=== PATIENT | male | born 1945 | race Caucasian/White ===

== ENCOUNTER 2017-10-25 01:16 | Inpatient (IN) | payer MEDICARE ==
[~2017-10-25] VITALS: Ht 175.3 cm; Wt 64.4 kg
[2017-10-25 01:45] VITALS: BP 141/92
--- NOTE | 2017-10-25 01:45 | NUR ---
GPS ADMISSION NOTE, RECEIVED PATIENT FROM [facility] DEPARTMENT OF ALCOHOL, DRUG, AND MENTAL HEALTH SERVICES / HOME. PATIENT ARRIVED ON THIS UNIT AT 0145 VIA STRETCHER WITH 2 EMT ESCORTS. PATIENT ADMITTED ON A 5150 HOLD FOR DTO AND DTS. PER HOLD [facility] CALLED TO PATIENT HOUSE BECAUSE HE WAS HAVING OUTBURSTS OF ANGER WHILE THREATENING TO KILL HIS AND HIMSELF. PATIENT THREATENED TO KILL HIMSELF BY OVERDOSING ON MEDICATION. PATIENT IS UNABLE TO CONTRACT FOR SAFETY AT THIS TIME. THE 5150 WAS REVIEWED AND THE DOCUMENTATION IN THE 5150 HOLD APPEARS TO REFLECT THE PRESENTATION OF THE PATIENT. UPON FACE TO FACE ASSESSMENT PATIENT IS CURRENTLY LYING IN BED AWAKE, HAS NO S/S OR COMPLAINTS OF PAIN. PATIENT IS DISPLAYING NO S/S OF APPARENT DISTRESS. PATIENT BREATHING IS UNLABORED WITH EQUAL RISE AND FALL OF THE CHEST. PATIENT IS ALERT AND ORIENTATED X 3 ON ROOM AIR. PATIENT ASSISTED WITH TURING AND REPOSITIONING Q2HR AND PRN FOR COMFORT AND CIRCULATION. PATIENT HAS NO NEEDS AT THIS TIME. PATIENT IS NOTED TO BEING WITHDRAWN, DEPRESSED, DISHEVELED, DISORGANIZED, COOPERATIVE, AND NEEDS REDIRECTION. PATIENT DENIES SUICIDE IDEATIONS AND HOMICIDAL IDEATIONS AT THIS TIME. PATIENT IS UNDER THE PSYCHIATRIC CARE OF DR. JOHNSON AND THE MEDICAL CARE OF DR SANTOS. PATIENT BELONGINGS WERE INVENTORIED AND CHECKED FOR CONTRABAND. ALL CONTRABAND REMOVED AND STORED IN PATIENT HALLWAY LOCKER. PATIENT ADVANCED DIRECTIVES PREFERENCE, IMMUNIZATIONS QUESTIONER, NECESSARY PAPERWORK, AND SKIN ASSESSMENT COMPLETED. PATIENT ORIENTATED TO ROOM, FLOOR, AND STAFF WITH ALL QUESTIONS ANSWERED. PATIENT EDUCATED ON THE USE OF THE CALL ROBERTS. PATIENT BED SIDE RAILS ARE UP X 2 FOR SAFETY. PATIENT BED IS LOCKED, LOW AND I WILL CONTINUE TO MONITOR THIS PATIENT Q 15 MIN WITH THE HELP OF STAFF TO MAINTAIN SAFETY.
[2017-10-25] MEDS ORDERED: MAGNESIUM HYDROXIDE 30 ML UDC PO PRN (02:00)
[2017-10-25] MEDS ORDERED: MAG HYDROX/AL HYDROX/SIMETH 30 ML UDC PO PRN (02:00)
[2017-10-25] MEDS ORDERED: PRAZ2CAP2 PO ×2 (02:58)
[2017-10-25] MEDS ORDERED: PRAZ5CAP2 PO (02:58)
[2017-10-25] MEDS ORDERED: THIA100T13 PO (02:58)
[2017-10-25] MEDS ORDERED: IPRA12.9 PO (02:58)
[2017-10-25] MEDS ORDERED: DOCU-141 PO (02:58)
[2017-10-25] MEDS ORDERED: PRAV40TA3 PO (02:58)
[2017-10-25] MEDS ORDERED: IBUP-1955 PO (02:58)
[2017-10-25] MEDS ORDERED: VENL75CA62 PO (02:58)
[2017-10-25] MEDS ORDERED: PREG25CA PO (02:58)
[2017-10-25] MEDS ORDERED: FOLI1TAB16 PO (02:58)
[2017-10-25] MEDS ORDERED: CYCL5TAB PO (02:58)
[2017-10-25] MEDS ORDERED: TAMS-12 PO (02:58)
[2017-10-25] MEDS ORDERED: VENL75TA4 PO (02:58)
[2017-10-25] MEDS ORDERED: TRAZ-214 PO (02:58)
[2017-10-25] MEDS ORDERED: QUET25TA PO (02:58)
[2017-10-25] MEDS ORDERED: OXYB5TAB11 PO (02:58)
[2017-10-25] MEDS ORDERED: FAMO20TA8 PO (02:58)
[2017-10-25] MEDS: ACETAMINOPHEN 325 MG TABLET PO PRN (03:00)
--- NOTE | 2017-10-25 03:00 | NUR ---
GPS RN NOTE, PATIENT HAS A COMPLAINT OF A HEADACHE AND IS REQUESTING TYLENOL AT THIS TIME. PATIENT VITAL SIGNS ARE STABLE. GAVE TYLENOL 650MG PO Q6HR PRN ORDERED. WILL REASSESS FOR PAIN AND I WILL CONTINUE TO MONITOR THIS PATIENT.
[2017-10-25] MEDS ORDERED: FLUT16SP16 NS (03:06)
[2017-10-25 07:58] LABS: ALBUMIN 3.5 g/dL (3.4-5.0); BILIRUBIN,TOTAL 0.3 mg/dL (0.2-1.0); CALCIUM, SERUM 8.7 mg/dL (8.5-10.1); POTASSIUM 3.8 mmol/L (3.5-5.1); TOTAL PROTEIN, SERUM 7.8 g/dL (6.4-8.2)
[2017-10-25 09:03] VITALS: BP 123/77
[2017-10-25] MEDS: NICOTINE PATCH (21MG) 21 MG PATCH.TD24 TD SCH (09:21)
--- NOTE | 2017-10-25 11:39 | NUR ---
Initial Discharge Plan: Pt currently resides at [address] [place] [id number]; ([phone]) with his . Per pt, he would like to return home and does not want to be sent to a facility no matter what his wants. SW will work with the pt and the MD regarding appropriate discharge planning. SW will form a safe and proper discharge.
--- NOTE | 2017-10-25 11:51 | NUR ---
SW called the pt's previous health and social care teacher from the [facility], Zohaib Hines ([phone] ext [phone]). TROY had to leave a message regarding the pt and asked the health and social care teacher to call back so that they can discuss his behaviors and a plan.
--- NOTE | 2017-10-25 11:51 | NUR ---
TROY called the pt's , Charlie Blackwell ([phone]), and discussed the pt and how she does not feel safe if the pt were to return home.
--- NOTE | 2017-10-25 12:03 | NUR ---
SW spoke to the pt's social worker clinical from [facility], Rosario Sanon ([phone] ext [phone]) and discussed potential options for discharge and she also stated that a neurological consult may be necessary because the pt has a traumatic brain injury.
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
[2017-10-25 16:00] VITALS: BP 163/93
[2017-10-25] MEDS: DOCUSATE SODIUM 250 MG CAPSULE PO SCH (18:18)
[2017-10-25] MEDS: IPRATROPIUM NEB FS 0.5 MG/2.5 ML AMPUL.NEB NEB SCH (19:30)
[2017-10-25] MEDS: TEMAZEPAM 7.5 MG CAPSULE PO PRN (21:23)
[2017-10-25] MEDS: OXYBUTYNIN CHLORIDE 5 MG TABLET PO SCH (21:24)
[2017-10-25] MEDS: TRAZODONE 50 MG TABLET PO SCH (21:24)
[2017-10-25] MEDS: LORAZEPAM 0.5 MG TABLET PO PRN (21:24)
[2017-10-25] MEDS ORDERED: PRAZOSIN HCL 5 MG PO SCH (22:00)
[2017-10-26] MEDS: IPRATROPIUM NEB FS 0.5 MG/2.5 ML AMPUL.NEB NEB SCH ×4 (01:13→19:30)
[2017-10-26 02:28] VITALS: BP 148/89
[2017-10-26 08:00] VITALS: BP 125/77
[2017-10-26 08:14] LABS: BASOPHILS % (AUTO) 0.2 % (0.0-2.0); EOSINOPHILS % (AUTO) 1.5 % (0.0-6.0); HEMATOCRIT 41 % (39-51); HEMOGLOBIN 13.9 g/dL (13.5-17.5); LYMPHOCYTES # (AUTO) 1.1 /CMM (0.8-4.8); MEAN CORPUSCULAR HEMOGLOBIN 34 PG (26.0-33.0); MEAN CORPUSCULAR HGB CONC 34 g/dl (31.0-36.0); MEAN CORPUSCULAR VOLUME 101 fL (80-96); MONOCYTES % (AUTO) 10.4 % (2.0-12.0); NEUTROPHILS # (AUTO) 7.1 /CMM (1.8-8.9); NEUTROPHILS % (AUTO) 75.9 % (43.0-81.0); PLATELET COUNT (AUTO) 410 /CMM (150-450); RDW COEFFICIENT OF VARIATION 13.9 (11.5-15.0); WHITE BLOOD COUNT (AUTO) 9.3 K/uL (4.3-11.0)
[2017-10-26] MEDS: CYCLOBENZAPRINE 10 MG TABLET PO SCH ×3 (08:28→17:11)
[2017-10-26] MEDS: DOCUSATE SODIUM 250 MG CAPSULE PO SCH (08:28)
[2017-10-26] MEDS: PREGABALIN 25 MG CAPSULE PO SCH ×2 (08:28→17:10)
[2017-10-26] MEDS: FOLIC ACID 1 MG TABLET PO SCH (08:28)
[2017-10-26] MEDS: THIAMINE HCL 100 MG TABLET PO SCH (08:28)
[2017-10-26] MEDS: TAMSULOSIN 0.4 MG CAP.SR.24H PO SCH (08:28)
[2017-10-26] MEDS: FAMOTIDINE (20 MG) 20 MG TABLET PO SCH ×2 (08:28→17:10)
[2017-10-26] MEDS: ATORVASTATIN 10 MG TABLET PO SCH (08:29)
[2017-10-26] MEDS: NICOTINE PATCH (21MG) 21 MG PATCH.TD24 TD SCH ×2 (08:29→08:43)
[2017-10-26] MEDS: FLUTICASONE PROPIONATE 16 GM BOTTLE NS SCH (08:29)
[2017-10-26 08:42] LABS: CALCIUM, SERUM 8.9 mg/dL (8.5-10.1); POTASSIUM 3.8 mmol/L (3.5-5.1)
[2017-10-26] MEDS: DIVALPROEX SODIUM 250 MG TABLET.DR PO SCH ×3 (08:42→17:10)
[2017-10-26] MEDS: VENLAFAXINE XR 75 MG CAP.SR.24H PO SCH ×2 (08:42→17:10)
[2017-10-26] MEDS ORDERED: PRAZOSIN HCL 1 MG CAPSULE PO SCH ×2 (09:00→12:40)
[2017-10-26] MEDS: IBUPROFEN 600 MG TABLET PO PRN (12:06)
--- NOTE | 2017-10-26 14:23 | NUR ---
ILEANA TERRELL ORDERED PODIATRY CONSULT AND CALLED THE OFFICE AND GENERAL TECHNICIAN WILL NOTIFY DR. TURNER THE SCHOOL VOCATIONAL EDUCATOR.
[2017-10-26 16:00] VITALS: BP 143/86
--- NOTE | 2017-10-26 19:50 | NUR ---
RN INITIAL NOTES: PT IN BED, AWAKE, A/O X3 ON RA DENIES ANY PAIN OR DISCOMFORT AT THIS TIME, PT AMBULATORY, WITHDRAWN, DEPRESSED, HOWEVER COOPERATIVE, PT HAS EPISODE OF BEING EASILY AGITATED AND CHANGES MOOD FREQUENTLY, MEDICATION COMPLIANT, HAS A NOTE FROM PT'S THAT WHEN DR JOHNSON CAME, NEEDS TO CALL PT'S , MD CURRENTLY IN THE UNIT AND MADE AWARE OF FAMILY REQUEST. ALSO MD WENT TO SEE THE PT. SAFETY PRECAUTIONS FOR FALL INITIATED, WILL MONITOR PT [id number] FOR SAFETY AND ANY CHANGES IN BEHAVIOR.
[2017-10-26 20:00] VITALS: BP 159/96
[2017-10-26 20:16] VITALS: BP 159/96
--- NOTE | 2017-10-26 20:30 | NUR ---
RN NOTES: RT APPROACHED ASSIGNED RN, STATED PT REFUSED BREATHING TX,STATED HIS LUNGS WERE CLEAR, EDUCATION PROVIDED TO THE PT,
[2017-10-26] MEDS ORDERED: PRAZOSIN HCL 1 MG CAPSULE PO ONE (21:56)
[2017-10-26] MEDS: OXYBUTYNIN CHLORIDE 5 MG TABLET PO SCH (22:14)
[2017-10-26] MEDS: TRAZODONE 50 MG TABLET PO SCH (22:16)
[2017-10-26] MEDS: PRAZOSIN HCL 1 MG CAPSULE PO SCH (22:16)
[2017-10-26 22:17] VITALS: BP 149/73
[2017-10-27] MEDS: IPRATROPIUM NEB FS 0.5 MG/2.5 ML AMPUL.NEB NEB SCH ×4 (01:30→19:26)
[2017-10-27 08:00] VITALS: BP 114/66
[2017-10-27] MEDS: THIAMINE HCL 100 MG TABLET PO SCH (08:38)
[2017-10-27] MEDS: TAMSULOSIN 0.4 MG CAP.SR.24H PO SCH (08:38)
[2017-10-27] MEDS: ATORVASTATIN 10 MG TABLET PO SCH (08:38)
[2017-10-27] MEDS: DOCUSATE SODIUM 250 MG CAPSULE PO SCH (08:38)
[2017-10-27] MEDS: FAMOTIDINE (20 MG) 20 MG TABLET PO SCH ×2 (08:38→16:59)
[2017-10-27] MEDS: FOLIC ACID 1 MG TABLET PO SCH (08:39)
[2017-10-27] MEDS: DIVALPROEX SODIUM 250 MG TABLET.DR PO SCH ×3 (08:39→16:59)
[2017-10-27] MEDS: CYCLOBENZAPRINE 10 MG TABLET PO SCH ×3 (08:39→16:59)
[2017-10-27] MEDS: PREGABALIN 25 MG CAPSULE PO SCH ×2 (08:39→16:59)
[2017-10-27] MEDS: VENLAFAXINE XR 75 MG CAP.SR.24H PO SCH ×2 (08:39→16:59)
[2017-10-27] MEDS: PRAZOSIN HCL 1 MG CAPSULE PO SCH ×2 (08:40→22:22)
[2017-10-27] MEDS: NICOTINE PATCH (21MG) 21 MG PATCH.TD24 TD SCH (08:43)
[2017-10-27] MEDS: FLUTICASONE PROPIONATE 16 GM BOTTLE NS SCH (08:47)
[2017-10-27] MEDS: NEOMY SULF/BACITRAC ZN/POLY 15 GM TUBE TP SCH ×2 (15:34→17:07)
[2017-10-27 16:00] VITALS: BP 117/71
[2017-10-27 20:00] VITALS: BP 157/93
--- NOTE | 2017-10-27 20:00 | NUR ---
GPS RN NOTE: RECEIVED PATIENT AWAKE ORIENTED X 3 LYING IN BED, PLEASANT UPON APPROACH MAKES NEEDS KNOWN, EASILY AGITATED WITH ROOMMATE. ENCOURAGED PATIENT TO VERBALIZE HIS FEELINGS AND CONCERNS AND DENIES SI, HI, HALLUCINATION. WAITING IN ROOM FOR SPINNING ROOM WORKER TO SEE HIM REGARDING BONE SPUR IN RIGHT FOOT. WILL CONTINUE TO MONITOR Q 15 MINUTES FOR COMFORT AND SAFETY.
[2017-10-27] MEDS: IBUPROFEN 600 MG TABLET PO PRN (20:32)
--- NOTE | 2017-10-27 20:35 | NUR ---
PT SEEN BY SPINNERET PERSON AND MIRAPLEX APPIED TO RIGHT HEEL AND RIGHT FOOT AND LAURI WRAP APPLIED TO RIGHT FOOT. PT. IS AMBULATORY WITHOUT ASSISTANCE BUT COMPLAINED OF 9/10 PAIN WHEN MOVES FOOT (NOT WHEN RESTING). MOTRIN PRN GIVEN PER PT. REQUEST, WILL CONTINUE TO MONITOR FOR COMFORT AND SAFETY.
[2017-10-27] MEDS: TRAZODONE 50 MG TABLET PO SCH (21:47)
[2017-10-27] MEDS: OXYBUTYNIN CHLORIDE 5 MG TABLET PO SCH (21:47)
[2017-10-27] MEDS ORDERED: PRAZOSIN HCL 1 MG CAPSULE PO ONE (22:05)
[2017-10-27] MEDS: TEMAZEPAM 7.5 MG CAPSULE PO PRN (23:26)
[2017-10-28] MEDS: IPRATROPIUM NEB FS 0.5 MG/2.5 ML AMPUL.NEB NEB SCH ×4 (01:30→19:30)
[2017-10-28 08:00] VITALS: BP 132/88
[2017-10-28] MEDS: DOCUSATE SODIUM 250 MG CAPSULE PO SCH (08:18)
[2017-10-28] MEDS: PRAZOSIN HCL 1 MG CAPSULE PO SCH ×2 (08:18→21:45)
[2017-10-28] MEDS: THIAMINE HCL 100 MG TABLET PO SCH (08:19)
[2017-10-28] MEDS: PREGABALIN 25 MG CAPSULE PO SCH ×2 (08:19→16:31)
[2017-10-28] MEDS: TAMSULOSIN 0.4 MG CAP.SR.24H PO SCH (08:19)
[2017-10-28] MEDS: CYCLOBENZAPRINE 10 MG TABLET PO SCH ×3 (08:19→16:32)
[2017-10-28] MEDS: VENLAFAXINE XR 75 MG CAP.SR.24H PO SCH ×2 (08:19→16:31)
[2017-10-28] MEDS: FOLIC ACID 1 MG TABLET PO SCH (08:19)
[2017-10-28] MEDS: DIVALPROEX SODIUM 250 MG TABLET.DR PO SCH ×3 (08:19→16:31)
[2017-10-28] MEDS: FAMOTIDINE (20 MG) 20 MG TABLET PO SCH ×2 (08:19→16:32)
[2017-10-28] MEDS: NICOTINE PATCH (21MG) 21 MG PATCH.TD24 TD SCH (08:22)
[2017-10-28] MEDS: NEOMY SULF/BACITRAC ZN/POLY 15 GM TUBE TP SCH ×2 (08:25→16:32)
[2017-10-28] MEDS: FLUTICASONE PROPIONATE 16 GM BOTTLE NS SCH (08:25)
[2017-10-28] MEDS: ATORVASTATIN 10 MG TABLET PO SCH (08:56)
[2017-10-28 16:13] VITALS: BP 141/84
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
[2017-10-28 20:06] VITALS: BP 135/97
[2017-10-28] MEDS: OXYBUTYNIN CHLORIDE 5 MG TABLET PO SCH (21:45)
[2017-10-28] MEDS: TRAZODONE 50 MG TABLET PO SCH (21:45)
[2017-10-28] MEDS: ACETAMINOPHEN 325 MG TABLET PO PRN (21:52)
[2017-10-28] MEDS: TEMAZEPAM 7.5 MG CAPSULE PO PRN (22:41)
[2017-10-29] MEDS: IPRATROPIUM NEB FS 0.5 MG/2.5 ML AMPUL.NEB NEB SCH ×4 (00:31→19:17)
[2017-10-29] MEDS: IBUPROFEN 600 MG TABLET PO PRN ×2 (07:05→23:34)
[2017-10-29 08:00] VITALS: BP 134/90
[2017-10-29] MEDS: NICOTINE PATCH (21MG) 21 MG PATCH.TD24 TD SCH (09:00)
[2017-10-29] MEDS: LORAZEPAM 0.5 MG TABLET PO PRN ×2 (09:05→17:35)
[2017-10-29] MEDS: DOCUSATE SODIUM 250 MG CAPSULE PO SCH (09:06)
[2017-10-29] MEDS: FOLIC ACID 1 MG TABLET PO SCH (09:06)
[2017-10-29] MEDS: TAMSULOSIN 0.4 MG CAP.SR.24H PO SCH (09:06)
[2017-10-29] MEDS: DIVALPROEX SODIUM 250 MG TABLET.DR PO SCH ×3 (09:06→17:35)
[2017-10-29] MEDS: VENLAFAXINE XR 75 MG CAP.SR.24H PO SCH ×2 (09:06→17:35)
[2017-10-29] MEDS: ATORVASTATIN 10 MG TABLET PO SCH (09:07)
[2017-10-29] MEDS: PREGABALIN 25 MG CAPSULE PO SCH ×2 (09:07→17:35)
[2017-10-29] MEDS: CYCLOBENZAPRINE 10 MG TABLET PO SCH ×3 (09:07→17:35)
[2017-10-29] MEDS: PRAZOSIN HCL 1 MG CAPSULE PO SCH ×2 (09:07→21:17)
[2017-10-29] MEDS: FLUTICASONE PROPIONATE 16 GM BOTTLE NS SCH (09:09)
[2017-10-29] MEDS: NEOMY SULF/BACITRAC ZN/POLY 15 GM TUBE TP SCH ×2 (09:16→17:36)
[2017-10-29] MEDS: FAMOTIDINE (20 MG) 20 MG TABLET PO SCH ×2 (09:39→17:35)
[2017-10-29] MEDS: THIAMINE HCL 100 MG TABLET PO SCH (09:39)
[2017-10-29] MEDS: ACETAMINOPHEN 325 MG TABLET PO PRN (12:06)
[2017-10-29 16:13] VITALS: BP 158/95
[2017-10-29 20:05] VITALS: BP 158/95
[2017-10-29] MEDS: OXYBUTYNIN CHLORIDE 5 MG TABLET PO SCH (22:00)
[2017-10-29] MEDS: TEMAZEPAM 7.5 MG CAPSULE PO PRN (22:01)
[2017-10-29] MEDS: TRAZODONE 50 MG TABLET PO SCH (22:01)
[2017-10-30] MEDS: IPRATROPIUM NEB FS 0.5 MG/2.5 ML AMPUL.NEB NEB SCH ×4 (00:51→19:30)
[2017-10-30 08:15] VITALS: BP 139/98
[2017-10-30] MEDS: NICOTINE PATCH (21MG) 21 MG PATCH.TD24 TD SCH ×2 (09:00→09:09)
[2017-10-30] MEDS: DIVALPROEX SODIUM 250 MG TABLET.DR PO SCH ×3 (09:09→16:57)
[2017-10-30] MEDS: DOCUSATE SODIUM 250 MG CAPSULE PO SCH (09:09)
[2017-10-30] MEDS: TAMSULOSIN 0.4 MG CAP.SR.24H PO SCH (09:09)
[2017-10-30] MEDS: PREGABALIN 25 MG CAPSULE PO SCH ×2 (09:09→16:57)
[2017-10-30] MEDS: ATORVASTATIN 10 MG TABLET PO SCH (09:09)
[2017-10-30] MEDS: FAMOTIDINE (20 MG) 20 MG TABLET PO SCH ×2 (09:09→16:57)
[2017-10-30] MEDS: VENLAFAXINE XR 75 MG CAP.SR.24H PO SCH ×2 (09:09→16:57)
[2017-10-30] MEDS: CYCLOBENZAPRINE 10 MG TABLET PO SCH ×3 (09:09→16:57)
[2017-10-30] MEDS: THIAMINE HCL 100 MG TABLET PO SCH (09:09)
[2017-10-30] MEDS: FOLIC ACID 1 MG TABLET PO SCH (09:09)
[2017-10-30] MEDS: FLUTICASONE PROPIONATE 16 GM BOTTLE NS SCH (09:11)
[2017-10-30] MEDS: NEOMY SULF/BACITRAC ZN/POLY 15 GM TUBE TP SCH ×2 (09:11→16:53)
[2017-10-30] MEDS: PRAZOSIN HCL 1 MG CAPSULE PO SCH ×2 (10:24→22:10)
--- NOTE | 2017-10-30 11:43 | NUR ---
TROY called the pt's , Charlie Blackwell ([phone]), and informed her that the pt is going to be discharged on Sunday but as of right now he does not have placement because he is refusing any option other than going home. TROY informed the that she would inform the pt that she still does not feel safe with him coming home right now and then she will encourage him to accept one of the placement options that will help him.
[2017-10-30] MEDS: IBUPROFEN 600 MG TABLET PO PRN (14:27)
--- NOTE | 2017-10-30 14:28 | NUR ---
RN NOTE :PATIENT C/O PAIN MEDICATED WITH IBUPROFEN 600MG X1 .WILL CONTINUE TO MONITOR .
[2017-10-30 16:15] VITALS: BP 127/80
--- NOTE | 2017-10-30 16:24 | NUR ---
TROY faxed a referral to [facility] to the fax number: [phone].
[2017-10-30] MEDS: ACETAMINOPHEN 325 MG TABLET PO PRN (17:01)
[2017-10-30 20:09] VITALS: BP 161/90
[2017-10-30] MEDS: DIVALPROEX SODIUM 500 MG TABLET.DR PO SCH (22:10)
[2017-10-30] MEDS: TRAZODONE 50 MG TABLET PO SCH (22:11)
[2017-10-30] MEDS: OXYBUTYNIN CHLORIDE 5 MG TABLET PO SCH (22:11)
[2017-10-31] MEDS: IPRATROPIUM NEB FS 0.5 MG/2.5 ML AMPUL.NEB NEB SCH ×4 (01:16→19:30)
[2017-10-31 08:00] VITALS: BP 117/76
[2017-10-31] MEDS: NICOTINE PATCH (21MG) 21 MG PATCH.TD24 TD SCH (09:00)
[2017-10-31] MEDS: CYCLOBENZAPRINE 10 MG TABLET PO SCH ×3 (09:06→17:54)
[2017-10-31] MEDS: FAMOTIDINE (20 MG) 20 MG TABLET PO SCH ×2 (09:06→17:54)
[2017-10-31] MEDS: FOLIC ACID 1 MG TABLET PO SCH (09:06)
[2017-10-31] MEDS: ATORVASTATIN 10 MG TABLET PO SCH (09:06)
[2017-10-31] MEDS: DOCUSATE SODIUM 250 MG CAPSULE PO SCH (09:06)
[2017-10-31] MEDS: IBUPROFEN 600 MG TABLET PO PRN (09:07)
[2017-10-31] MEDS: DIVALPROEX SODIUM 250 MG TABLET.DR PO SCH ×2 (09:07→13:00)
[2017-10-31] MEDS: NEOMY SULF/BACITRAC ZN/POLY 15 GM TUBE TP SCH ×2 (09:16→17:00)
[2017-10-31] MEDS: FLUTICASONE PROPIONATE 16 GM BOTTLE NS SCH (09:16)
[2017-10-31] MEDS: VENLAFAXINE XR 75 MG CAP.SR.24H PO SCH ×2 (09:23→17:54)
[2017-10-31] MEDS: PREGABALIN 25 MG CAPSULE PO SCH ×2 (09:23→17:54)
[2017-10-31] MEDS: TAMSULOSIN 0.4 MG CAP.SR.24H PO SCH (09:23)
[2017-10-31] MEDS: THIAMINE HCL 100 MG TABLET PO SCH (09:24)
[2017-10-31] MEDS: PRAZOSIN HCL 1 MG CAPSULE PO SCH ×2 (09:24→22:39)
--- NOTE | 2017-10-31 11:29 | NUR ---
Stan Snider ([phone]), pt's son, and informed of the discharge options and then discussed the pt's behavior.
[2017-10-31 16:00] VITALS: BP 141/80
[2017-10-31 20:22] VITALS: BP 138/65
[2017-10-31] MEDS: TRAZODONE 50 MG TABLET PO SCH (22:39)
[2017-10-31] MEDS: DIVALPROEX SODIUM 500 MG TABLET.DR PO SCH (22:40)
[2017-10-31] MEDS: OXYBUTYNIN CHLORIDE 5 MG TABLET PO SCH (22:40)
[2017-11-01] MEDS: IPRATROPIUM NEB FS 0.5 MG/2.5 ML AMPUL.NEB NEB SCH ×4 (01:30→19:30)
[2017-11-01 08:00] VITALS: BP 140/78
[2017-11-01] MEDS: ATORVASTATIN 10 MG TABLET PO SCH (08:15)
[2017-11-01] MEDS: PREGABALIN 25 MG CAPSULE PO SCH ×2 (08:15→16:11)
[2017-11-01] MEDS: FOLIC ACID 1 MG TABLET PO SCH (08:15)
[2017-11-01] MEDS: FAMOTIDINE (20 MG) 20 MG TABLET PO SCH ×2 (08:15→16:11)
[2017-11-01] MEDS: THIAMINE HCL 100 MG TABLET PO SCH (08:15)
[2017-11-01] MEDS: VENLAFAXINE XR 75 MG CAP.SR.24H PO SCH ×2 (08:15→16:11)
[2017-11-01] MEDS: TAMSULOSIN 0.4 MG CAP.SR.24H PO SCH (08:15)
[2017-11-01] MEDS: DIVALPROEX SODIUM 250 MG TABLET.DR PO SCH ×2 (08:15→12:55)
[2017-11-01] MEDS: CYCLOBENZAPRINE 10 MG TABLET PO SCH ×2 (08:15→12:55)
[2017-11-01] MEDS: DOCUSATE SODIUM 250 MG CAPSULE PO SCH (08:17)
[2017-11-01] MEDS: FLUTICASONE PROPIONATE 16 GM BOTTLE NS SCH (08:17)
[2017-11-01] MEDS: NICOTINE PATCH (21MG) 21 MG PATCH.TD24 TD SCH (08:17)
[2017-11-01] MEDS: PRAZOSIN HCL 1 MG CAPSULE PO SCH ×2 (09:12→21:11)
[2017-11-01] MEDS: NEOMY SULF/BACITRAC ZN/POLY 15 GM TUBE TP SCH ×2 (10:56→17:09)
--- NOTE | 2017-11-01 11:19 | NUR ---
TROY called the pt's , Charlie Blackwell ([phone]), because she left a voicemail yesterday and provided her with an update regarding the pt and his discharge plan. TROY stated that she sent referrals out for the pt but has not received word yet. She informed the pt's that she will be talking to the pt soon to discuss discharge plans once again.
--- NOTE | 2017-11-01 11:42 | NUR ---
TROY called Stan Snider ([phone]), pt's son, and left a voicemail asking him to call back.
--- NOTE | 2017-11-01 11:48 | NUR ---
SW called Stan Snider ([phone]), pt's son, and he stated that he was going to get the pt's cousin's phone number so that we can verify that he can go live with her.
--- NOTE | 2017-11-01 12:28 | NUR ---
Vipul ([phone]) called the SW and discussed that the pt's discharge plan needs more time and so he asked the SW to talk to the psychiatrist to push the discharge to Sunday.
--- NOTE | 2017-11-01 13:18 | NUR ---
Stan Snider ([phone]), pt's son, called the and provided her with the number for Nicole Rodriguez ([phone]), the pt's cousin.
--- NOTE | 2017-11-01 15:00 | NUR ---
Stan Snider ([phone]), pt's son, called the SW and stated that he spoke to the pt's cousin, Nicole Rodriguez and that she stated that the pt has informed her that he is suicidal and that he "does not want to live anymore when no one cares about him."
--- NOTE | 2017-11-01 15:01 | NUR ---
TROY called the pt's cousin, Nicole Rodriguez ([phone]), and she informed him that the pt is more than welcome to go live with her. Her address is [address] [place] [address].
[2017-11-01 16:00] VITALS: BP 158/86
[2017-11-01] MEDS: MINERAL OIL/PETROLATUM,WHITE 120 GM JAR TP PRN (17:09)
[2017-11-01 20:00] VITALS: BP 140/97
[2017-11-01] MEDS: DIVALPROEX SODIUM 500 MG TABLET.DR PO SCH (21:10)
[2017-11-01] MEDS: TRAZODONE 50 MG TABLET PO SCH (21:10)
[2017-11-01] MEDS: OXYBUTYNIN CHLORIDE 5 MG TABLET PO SCH (21:10)
[2017-11-01] MEDS: HYDROCODONE/APAP 5/325MG 1 EACH TABLET PO PRN (21:28)
[2017-11-02] MEDS: IPRATROPIUM NEB FS 0.5 MG/2.5 ML AMPUL.NEB NEB SCH ×4 (01:21→19:30)
[2017-11-02 08:00] VITALS: BP 121/80
[2017-11-02] MEDS: PREGABALIN 25 MG CAPSULE PO SCH ×2 (08:20→16:26)
[2017-11-02] MEDS: FAMOTIDINE (20 MG) 20 MG TABLET PO SCH ×2 (08:21→16:26)
[2017-11-02] MEDS: TAMSULOSIN 0.4 MG CAP.SR.24H PO SCH (08:21)
[2017-11-02] MEDS: VENLAFAXINE XR 75 MG CAP.SR.24H PO SCH ×2 (08:21→16:26)
[2017-11-02] MEDS: FOLIC ACID 1 MG TABLET PO SCH (08:22)
[2017-11-02] MEDS: ATORVASTATIN 10 MG TABLET PO SCH (08:22)
[2017-11-02] MEDS: THIAMINE HCL 100 MG TABLET PO SCH (08:22)
[2017-11-02] MEDS: DIVALPROEX SODIUM 250 MG TABLET.DR PO SCH ×2 (08:22→12:35)
[2017-11-02] MEDS: NICOTINE PATCH (21MG) 21 MG PATCH.TD24 TD SCH (08:26)
[2017-11-02] MEDS: DOCUSATE SODIUM 250 MG CAPSULE PO SCH (08:26)
[2017-11-02] MEDS: PRAZOSIN HCL 1 MG CAPSULE PO SCH ×2 (08:30→21:18)
[2017-11-02] MEDS: FLUTICASONE PROPIONATE 16 GM BOTTLE NS SCH (08:31)
[2017-11-02] MEDS: NEOMY SULF/BACITRAC ZN/POLY 15 GM TUBE TP SCH ×2 (10:38→16:27)
[2017-11-02] MEDS: MINERAL OIL/PETROLATUM,WHITE 120 GM JAR TP PRN (10:38)
--- NOTE | 2017-11-02 11:10 | NUR ---
TROY called the pt's , Charlie Blackwell ([phone]), and informed her that the pt's discharge plan is that he is leaving on Sunday and is going to be taking the [employer] to his cousin's house in [place] at around 12:40PM and informed her of the ott of the ticket.
--- NOTE | 2017-11-02 13:15 | NUR ---
Vipul ([phone]), pt's nephew, called the and discussed buying the pt a potential plane ticket since the pt no longer wants to go by bus to [place].
--- NOTE | 2017-11-02 13:20 | NUR ---
TROY called the pt's , Charlie Blackwell ([phone]), and informed her that the pt wants to fly to [place] to live with his cousin and that she would need to buy the ticket and bring it along with his belongings on Sunday as planned.
--- NOTE | 2017-11-02 15:20 | NUR ---
TROY called the pt's , Charlie Blackwell ([phone]), and informed her that the pt does have his drivers license on him.
[2017-11-02 16:07] VITALS: BP 128/88
[2017-11-02 20:00] VITALS: BP 145/87
[2017-11-02] MEDS: diphenhydrAMINE HCL ELIX 25 MG/10 ML UDC PO PRN (20:07)
--- NOTE | 2017-11-02 20:23 | NUR ---
RN NOTES PT C/O GENERALIZED ITCHINESS. REQUESTING BENADRYL. ADMINISTERED PRN BENADRYL 25MG PO ORDERED.
[2017-11-02] MEDS: TRAZODONE 50 MG TABLET PO SCH (21:18)
[2017-11-02] MEDS: DIVALPROEX SODIUM 500 MG TABLET.DR PO SCH (21:18)
[2017-11-02] MEDS: OXYBUTYNIN CHLORIDE 5 MG TABLET PO SCH (21:19)
[2017-11-02] MEDS: HYDROCODONE/APAP 5/325MG 1 EACH TABLET PO PRN (21:29)
--- NOTE | 2017-11-02 21:30 | NUR ---
RN NOTES PT C/O 5-10 PAIN TO ANTERIOR RIGHT FOOT. ADMINISTERED PRN NORCO 5-325 ORDERED.
[2017-11-03] MEDS: IBUPROFEN 600 MG TABLET PO PRN ×2 (01:23→16:59)
[2017-11-03] MEDS: TEMAZEPAM 7.5 MG CAPSULE PO PRN (01:23)
--- NOTE | 2017-11-03 01:25 | NUR ---
RN NOTES PT REQUESTING MOTRIN FOR PAIN TO RIGHT FOOT. STATES HE ALSO CANNOT SLEEP, WANTS SLEEPING PILL. ADMINISTERED PRN MOTRIN 600MG PO AND RESTORIL 7.5MG PO ORDERED.
[2017-11-03] MEDS: IPRATROPIUM NEB FS 0.5 MG/2.5 ML AMPUL.NEB NEB SCH ×4 (01:30→21:21)
[2017-11-03 08:11] VITALS: BP 143/81
[2017-11-03] MEDS: THIAMINE HCL 100 MG TABLET PO SCH (08:42)
[2017-11-03] MEDS: DIVALPROEX SODIUM 250 MG TABLET.DR PO SCH ×2 (08:42→12:00)
[2017-11-03] MEDS: ATORVASTATIN 10 MG TABLET PO SCH (08:42)
[2017-11-03] MEDS: DOCUSATE SODIUM 250 MG CAPSULE PO SCH (08:42)
[2017-11-03] MEDS: FOLIC ACID 1 MG TABLET PO SCH (08:42)
[2017-11-03] MEDS: VENLAFAXINE XR 75 MG CAP.SR.24H PO SCH ×2 (08:42→16:43)
[2017-11-03] MEDS: FAMOTIDINE (20 MG) 20 MG TABLET PO SCH ×2 (08:47→16:43)
[2017-11-03] MEDS: PRAZOSIN HCL 1 MG CAPSULE PO SCH ×2 (08:47→21:46)
[2017-11-03] MEDS: NEOMY SULF/BACITRAC ZN/POLY 15 GM TUBE TP SCH ×2 (08:47→16:59)
[2017-11-03] MEDS: TAMSULOSIN 0.4 MG CAP.SR.24H PO SCH (08:47)
[2017-11-03] MEDS: FLUTICASONE PROPIONATE 16 GM BOTTLE NS SCH (08:47)
[2017-11-03] MEDS: PREGABALIN 25 MG CAPSULE PO SCH ×2 (08:47→16:43)
[2017-11-03] MEDS: NICOTINE PATCH (21MG) 21 MG PATCH.TD24 TD SCH (08:47)
[2017-11-03] MEDS ORDERED: DEXAMETHASONE SOD PHOSPHATE 10 MG/ML VIAL IM ONE (12:00)
[2017-11-03] MEDS: HYDROCODONE/APAP 5/325MG 1 EACH TABLET PO PRN ×2 (12:00→18:05)
--- NOTE | 2017-11-03 12:00 | NUR ---
RN NOTES: PT C/O 8-10 PAIN TO RIGHT FOOT. ADMINISTERED PRN NORCO 5-325 ORDERED.CONTINUE MONITORING
[2017-11-03 16:00] VITALS: BP 133/90
[2017-11-03] MEDS: MINERAL OIL/PETROLATUM,WHITE 120 GM JAR TP PRN (16:59)
--- NOTE | 2017-11-03 18:33 | NUR ---
RN NOTES: PT C/O 7-10 PAIN TO RIGHT FOOT. ADMINISTERED PRN NORCO 5-325 ORDERED.CONTINUE MONITORING
[2017-11-03 20:00] VITALS: BP 154/94
--- NOTE | 2017-11-03 20:10 | NUR ---
RN INITIAL NOTES: RECEIVED PT TRANSFER FROM GPS, PT WILL BE GPS OVERFLOW. PATIENT AWAKE, ALERT AND ORIENTED X 3, CALM, COOPERATIVE, DISORGANIZED, ISOLATIVE, MED COMPLIANT, NO SOB, NO ACUTE DISTRESS, BREATHING EVEN AND UNLABORED, SITTER AT BED SIDE, KEPT CLEAN, DRY AND COMFORTABLE. REMOVE IV PUMP AND ANY OBJECTS THAT MAY HARM PT. WILL CONTINUE TO MONITOR [id number] FOR SAFETY AND ANY CHANGES IN BEHAVIOR
[2017-11-03 20:15] VITALS: BP 150/77
[2017-11-03] MEDS ORDERED: PRAZOSIN HCL 1 MG CAPSULE PO ONE (21:39)
[2017-11-03] MEDS: TRAZODONE 50 MG TABLET PO SCH (21:45)
[2017-11-03] MEDS: OXYBUTYNIN CHLORIDE 5 MG TABLET PO SCH (21:45)
[2017-11-03] MEDS: DIVALPROEX SODIUM 500 MG TABLET.DR PO SCH (21:46)
[2017-11-04] MEDS: HYDROCODONE/APAP 5/325MG 1 EACH TABLET PO PRN ×3 (00:15→21:40)
--- NOTE | 2017-11-04 00:15 | NUR ---
PRN NORCO 5/325: PT C/O GENERALIZED PAIN 11/02 REQUESTING FOR NORCO, PRN NORCO 5/325 MG TAB POP ADMINISTERED TO THE PT AT THIS TIME, WILL CONTINUE TO MONITOR AND REASSESS
--- NOTE | 2017-11-04 01:00 | NUR ---
RN NOTES: OFFERED RESTORIL TO HELP PT SLEEP, HOWEVER PT REFUSED, STATED HE DOESN'T NEED IT, AND INSTEAD ASKED FOR FOOD, EDUCATION PROVIDED TO THE PT
[2017-11-04] MEDS: IPRATROPIUM NEB FS 0.5 MG/2.5 ML AMPUL.NEB NEB SCH ×4 (01:30→19:30)
--- NOTE | 2017-11-04 02:00 | NUR ---
RN NOTES: NOTED PT STILL AWAKE, OFFERED SLEEPING PILL, PT REFUSED AND SAID HE WANTS TO EAT AGAIN, MULTIPLE SNACKS PROVIDED TO THE PT, CONSUMED 100%
--- NOTE | 2017-11-04 07:04 | NUR ---
RN CLOSING NOTES: PT IN BED AWAKE, REMAINS A/O X3 DENIES ANY PLAN OF HURTING HIMSELF. SITTER AT BED SIDE. TOTAL HOURS OF SLEEP IS 2. VS REMAINS STABLE, NEEDS ATTENDED. SAFETY PRECAUTIONS FOR FALL REMAINS ENGAGED, CALL LIGHT IN REACH, WILL ENDORSE TO DAY RN FOR KALLI.
[2017-11-04] MEDS: FOLIC ACID 1 MG TABLET PO SCH (08:34)
[2017-11-04] MEDS: VENLAFAXINE XR 75 MG CAP.SR.24H PO SCH ×2 (08:34→17:22)
[2017-11-04] MEDS: ATORVASTATIN 10 MG TABLET PO SCH (08:37)
[2017-11-04] MEDS: PREGABALIN 25 MG CAPSULE PO SCH ×2 (08:37→17:22)
[2017-11-04] MEDS: TAMSULOSIN 0.4 MG CAP.SR.24H PO SCH (08:37)
[2017-11-04] MEDS: DIVALPROEX SODIUM 250 MG TABLET.DR PO SCH ×2 (08:37→12:32)
[2017-11-04] MEDS: FAMOTIDINE (20 MG) 20 MG TABLET PO SCH ×2 (08:37→17:22)
[2017-11-04] MEDS: PRAZOSIN HCL 1 MG CAPSULE PO SCH ×2 (08:37→21:30)
[2017-11-04] MEDS: DOCUSATE SODIUM 250 MG CAPSULE PO SCH (08:37)
[2017-11-04] MEDS: THIAMINE HCL 100 MG TABLET PO SCH (08:37)
[2017-11-04] MEDS: diphenhydrAMINE HCL ELIX 25 MG/10 ML UDC PO PRN (08:52)
[2017-11-04] MEDS: NICOTINE PATCH (21MG) 21 MG PATCH.TD24 TD SCH (08:54)
[2017-11-04] MEDS: FLUTICASONE PROPIONATE 16 GM BOTTLE NS SCH (11:14)
[2017-11-04] MEDS: NEOMY SULF/BACITRAC ZN/POLY 15 GM TUBE TP SCH ×2 (11:14→17:25)
[2017-11-04 16:00] VITALS: BP 156/74
--- NOTE | 2017-11-04 18:44 | NUR ---
MS RN closing notes Patient ambulates independently, on 14 day hold per psyche. No agitated behavior. Shoulder pain managed by PRN wallaceco with relief. Maintained 1:1 sitter at the bedside. Will endorse to oncoming RN
--- NOTE | 2017-11-04 19:50 | NUR ---
GPS OV RN NOTES SITTING COMFORTABLY ON BED,A/O X3,NO SALINE LOCK,ABLE TO VERBALIZE NEEDS.WILL CONTINUE TO MONITOR BEHAVIOR.
--- NOTE | 2017-11-04 19:54 | NUR ---
PT IS AWAKE AND ALERT. NO RESP DISTRESS NOTED. PT IS REFUSING ALL BREATHING TREATMENTS. RN PADMA NOTIFIED.
[2017-11-04 20:00] VITALS: BP 162/82
[2017-11-04] MEDS: OXYBUTYNIN CHLORIDE 5 MG TABLET PO SCH (21:16)
[2017-11-04] MEDS: TRAZODONE 50 MG TABLET PO SCH (21:16)
[2017-11-04] MEDS: DIVALPROEX SODIUM 500 MG TABLET.DR PO SCH (21:16)
[2017-11-04] MEDS ORDERED: PRAZOSIN HCL 1 MG CAPSULE PO ONE (21:24)
[2017-11-05] MEDS: IPRATROPIUM NEB FS 0.5 MG/2.5 ML AMPUL.NEB NEB SCH ×3 (01:15→12:52)
--- NOTE | 2017-11-05 07:39 | NUR ---
MS/RN Patient received Patient A/O X3, sitter at bedside as remains on 14 day hold, expires 11/10/17. All needs attended, will continue to monitor and ensure safety.
[2017-11-05 07:54] VITALS: BP 108/72
[2017-11-05] MEDS: TAMSULOSIN 0.4 MG CAP.SR.24H PO SCH (08:07)
[2017-11-05] MEDS: FAMOTIDINE (20 MG) 20 MG TABLET PO SCH (08:07)
[2017-11-05] MEDS: THIAMINE HCL 100 MG TABLET PO SCH (08:07)
[2017-11-05] MEDS: NICOTINE PATCH (21MG) 21 MG PATCH.TD24 TD SCH (08:07)
[2017-11-05] MEDS: DOCUSATE SODIUM 250 MG CAPSULE PO SCH (08:07)
[2017-11-05] MEDS: PREGABALIN 25 MG CAPSULE PO SCH (08:07)
[2017-11-05] MEDS: FOLIC ACID 1 MG TABLET PO SCH (08:07)
[2017-11-05 08:09] VITALS: BP 108/72
[2017-11-05] MEDS: PRAZOSIN HCL 1 MG CAPSULE PO SCH (08:09)
[2017-11-05] MEDS: ATORVASTATIN 10 MG TABLET PO SCH (08:09)
[2017-11-05] MEDS: NEOMY SULF/BACITRAC ZN/POLY 15 GM TUBE TP SCH (08:09)
[2017-11-05] MEDS: FLUTICASONE PROPIONATE 16 GM BOTTLE NS SCH (08:09)
[2017-11-05] MEDS: DIVALPROEX SODIUM 250 MG TABLET.DR PO SCH ×2 (08:09→12:15)
[2017-11-05] MEDS: VENLAFAXINE XR 75 MG CAP.SR.24H PO SCH (08:09)
[2017-11-05] MEDS: HYDROCODONE/APAP 5/325MG 1 EACH TABLET PO PRN (08:16)
--- NOTE | 2017-11-05 08:44 | NUR ---
MS/laminate floor installer plan Informed by social work professor that patient is to be discharged to home today. Will need taxi voucher to go to [id number], from there, will take flight to [place]. Discharge plan discussed and approved by Charlie Blackwell
--- NOTE | 2017-11-05 11:43 | NUR ---
MS/RN Exit care Exit care prepared and signed by patient. Explained the importance of taking all medications as ordered and to make sure that prescription is filled as soon as possible. Explained what each medication was for and included any possible side effects that may occur. Patient stated understanding of both. Patient stated that he no longer wanted to harm himself or others.
--- NOTE | 2017-11-05 11:47 | NUR ---
SW met with the pt's , Charlie Blackwell ([phone]), when she came to the hospital to drop off his belongings. Pt's stated that she wanted to ensure as much as possible that the pt would be able to get on his flight and so the SW stated that she would type out a do list for the pt upon leaving the cab.
--- NOTE | 2017-11-05 13:22 | NUR ---
MS/staff consultant Patient assisted to main lobby by MONA. All personal belongings accounted for on belongings list. Again reinforced the importance of getting on the plane at the airport and not stopping en route. Patient stated understanding. Provided with list of medications, including what each medication is for and how often they need to be taken. Name bands removed. Time allowed for all questions and concerns to be addressed.
--- NOTE | 2017-11-05 13:46 | NUR ---
TROY called the pt's cousin, Nicole Rodriguez ([phone]), and left a message in her voicemail stating that the pt was discharged from the hospital and is on his way to the airport right now.
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
== END 2017-11-05 13:00 | disposition home or self-care (01) | DRG 885 ==
LOC: GPS 01:16 → GPSOV2 11-03 19:50
PROVIDERS: ADMIT Psychiatry & Neurology Psychiatry; ATTEND Psychiatry & Neurology Psychiatry
DX: F39 Unspecified mood [affective] disorder (principal); F29 Unspecified psychosis not due to a substance or known physiological condition; F32.9 Major depressive disorder, single episode, unspecified; X58.XXXA Exposure to other specified factors, initial encounter; Y92.009 Unspecified place in unspecified non-institutional (private) residence as the place of occurrence of the external cause; F43.10 Post-traumatic stress disorder, unspecified; Z72.0 Tobacco use; S92.101A Unspecified fracture of right talus, initial encounter for closed fracture; W19.XXXA Unspecified fall, initial encounter; Y92.410 Unspecified street and highway as the place of occurrence of the external cause; Z79.899 Other long term (current) drug therapy; S90.811A Abrasion, right foot, initial encounter; Z73.6 Limitation of activities due to disability; E78.5 Hyperlipidemia, unspecified; I10 Essential (primary) hypertension; L20.9 Atopic dermatitis, unspecified
CPT/HCPCS: 36415; 73630-TC; 80048-TC; 80053-TC; 80061-TC; 80164-TC; 85025-TC; 87081-TC; A6402; J1100; Q0163; Z7610